=== PATIENT | female | born 1985 | race Caucasian/White ===

== ENCOUNTER 2016-04-03 22:53 | Emergency (ER) | payer OTHER ==
[~2016-04-03 22:53] MED LIST: DENIES MEDS
[2016-04-03 23:23] LABS: BASOPHILS 0.3 %; BASOPHILS ABSOLUTE 0.02 10/3/uL (0.0-0.16); EOSINOPHILS 3.2 %; ER CBC TAT 0 Hrs 12 Mins; HEMATOCRIT 40.2 % (36.0-48.0); HEMOGLOBIN 13.9 g/dL (12.0-16.0); IMMATURE GRANULOCYTES 0.2 %; IMMATURE GRANULOCYTES ABSOLUTE 0.01 10/3/uL (0.0-0.11); LYMPHOCYTES 37.7 %; LYMPHOCYTES ABSOLUTE 2.38 10/3/uL (0.67-4.30); MEAN CORPUS HGB CONC 34.6 g/dL (32.0-36.0); MEAN CORPUSCULAR HEMOGLOB 30.2 pg (26.0-34.0); MEAN CORPUSCULAR VOLUME 87.4 fL (80-100); MEAN PLATELET VOLUME 9.4 fL (9.2-13.0); MONOCYTES 5.5 %; MONOCYTES ABSOLUTE 0.35 10/3/uL (0.21-1.20); NEUTROPHILS 53.1 %; NEUTROPHILS ABSOLUTE 3.35 10/3/uL (2.02-8.40); PLATELET COUNT 323 10/3/uL (150-400); RBC DISTRIBUTION WIDTH 12.5 % (12.0-16.0); WHITE BLOOD CELLS 6.3 10/3/uL (4.5-10.5)
[2016-04-03 23:25] LABS: MANUAL DIFF NO %
[2016-04-03 23:29] LABS: BUN (BLOOD UREA NITROGEN) 11 MG/DL (6-23); CALCIUM, SERUM 9.1 MG/DL (8.5-10.4); CHLORIDE, SERUM 107 MMOL/L (96-112); CO2 (CARBON DIOXIDE) 24 MMOL/L (24-34); CREATININE 0.91 MG/DL (0.55-1.02); GFR AFRICAN AMERICAN 100 ML/MIN (>=60); GFR NON AFRICAN AMERICAN 86 ML/MIN (>=60); POTASSIUM, SERUM 3.9 MMOL/L (3.5-5.3); SODIUM, SERUM 140 MMOL/L (135-148)
[2016-04-03 23:30] LABS: GLUCOSE, SERUM 113 MG/DL (60-99)
[2016-04-04 00:05] LABS: ASCORBIC ACID (UR NOT ORDER) NEG (NEG); BILIRUBIN, URINE NEGATIVE (NEG); ER URINALYSIS TAT 0 Hrs 00 Mins; KETONE, URINE TRACE MG/DL (NEG); LEUKOCYTE ESTERASE(NOT OR NEG (NEG); NITRITE (URINE) NEG (NEG); WBC (NOT ORDERED) (RFLEX) 2 (0-5)
== END 2016-04-04 05:28 | disposition home or self-care (01) ==
LOC: ER 22:53
PROVIDERS: Specialist
DX: N83.201 Unspecified ovarian cyst, right side (principal); I10 Essential (primary) hypertension; Z87.442 Personal history of urinary calculi; Z88.1 Allergy status to other antibiotic agents; Z88.8 Allergy status to other drugs, medicaments and biological substances
CPT/HCPCS: 74176; 80048; 81001; 84703; 85025; 96374; 96375; 99284; J1170; J2405

== ENCOUNTER 2016-06-18 19:48 | Emergency (ER) | payer OTHER | END 2016-06-18 19:59 | disposition home or self-care (01) | LOC: ER 19:48 | DX: J06.9 Acute upper respiratory infection, unspecified (principal); R42 Dizziness and giddiness; I10 Essential (primary) hypertension; F17.200 Nicotine dependence, unspecified, uncomplicated; Z90.49 Acquired absence of other specified parts of digestive tract; Z88.1 Allergy status to other antibiotic agents; Z88.8 Allergy status to other drugs, medicaments and biological substances | CPT/HCPCS: 99283; A9270-GY ==

== ENCOUNTER 2016-07-25 18:37 | Emergency (ER) | payer OTHER ==
[2016-07-25 19:00] LABS: WBC (NOT ORDERED) (RFLEX) 0 (0-5)
[2016-07-25 19:13] LABS: BASOPHILS 0.6 %; BASOPHILS ABSOLUTE 0.03 10/3/uL (0.0-0.16); EOSINOPHILS ABSOLUTE 0.21 10/3/uL (0.0-0.53); ER CBC TAT 0 Hrs 07 Mins; HEMATOCRIT 37.9 % (36.0-48.0); HEMOGLOBIN 12.8 g/dL (12.0-16.0); IMMATURE GRANULOCYTES 0.2 %; IMMATURE GRANULOCYTES ABSOLUTE 0.01 10/3/uL (0.0-0.11); LYMPHOCYTES 39.2 %; LYMPHOCYTES ABSOLUTE 2.08 10/3/uL (0.67-4.30); MEAN CORPUS HGB CONC 33.8 g/dL (32.0-36.0); MEAN PLATELET VOLUME 9.2 fL (9.2-13.0); MONOCYTES 8.5 %; MONOCYTES ABSOLUTE 0.45 10/3/uL (0.21-1.20); NEUTROPHILS 47.5 %; NEUTROPHILS ABSOLUTE 2.53 10/3/uL (2.02-8.40); PLATELET COUNT 316 10/3/uL (150-400); RBC DISTRIBUTION WIDTH 13.1 % (12.0-16.0); RED CELL COUNT 4.26 10/6/uL (4.0-5.6); WHITE BLOOD CELLS 5.3 10/3/uL (4.5-10.5)
[2016-07-25 19:15] LABS: ASCORBIC ACID (UR NOT ORDER) NEG (NEG); BILIRUBIN, URINE NEGATIVE (NEG); ER URINALYSIS TAT 0 Hrs 16 Mins; KETONE, URINE NEGATIVE (NEG); LEUKOCYTE ESTERASE(NOT OR NEG (NEG); NITRITE (URINE) NEG (NEG)
[2016-07-25 19:16] LABS: MANUAL DIFF NO %
[2016-07-25 19:29] LABS: A/G RATIO 1.1 (0.7-1.9); ALBUMIN 4.1 G/DL (3.5-5.0); ALKALINE PHOSPHATASE 67 U/L (45-117); BUN (BLOOD UREA NITROGEN) 16 MG/DL (6-23); CALCIUM, SERUM 8.9 MG/DL (8.5-10.4); CHLORIDE, SERUM 110 MMOL/L (96-112); CO2 (CARBON DIOXIDE) 23 MMOL/L (24-34); CREATININE 0.76 MG/DL (0.55-1.02); GFR AFRICAN AMERICAN 123 ML/MIN (>=60); GFR NON AFRICAN AMERICAN 106 ML/MIN (>=60); GLOBULIN 3.7 G/DL (2.5-4.1); GLUCOSE, SERUM 125 MG/DL (60-99); POTASSIUM, SERUM 3.9 MMOL/L (3.5-5.3); SGOT(AST) 42 U/L (5-40); SGPT(ALT) 78 U/L (5-65); SODIUM, SERUM 141 MMOL/L (135-148); TOTAL BILIRUBIN 0.4 MG/DL (0-1.2); TOTAL PROTEIN 7.8 G/DL (6.0-8.5)
[2016-07-26 02:08] LABS: AMPHETAMINES (NOT ORD) NEG (NEG); BARBITURATES (NOT ORDERED NEG (NEG); BENZODIAZEPINES (NOT ORD) NEG (NEG); CANNABINOIDS (THC) NEG (NEG); COCAINE (NOT ORDERED) NEG (NEG); OPIATES NEG (NEG); PHENCYCLIDINE(PCP) NEG (NEG)
[2016-07-26 02:09] LABS: TRICYCLICS NEG (NEG)
== END 2016-07-26 01:53 | disposition home or self-care (01) ==
LOC: ER 18:37
PROVIDERS: Emergency Medicine
DX: R10.33 Periumbilical pain (principal); R79.89 Other specified abnormal findings of blood chemistry; Z88.1 Allergy status to other antibiotic agents; Z88.8 Allergy status to other drugs, medicaments and biological substances
CPT/HCPCS: 80053; 80305; 81001; 83690; 84703; 85025; 99284